=== PATIENT | male | born 1950 | race Caucasian/White ===

== ENCOUNTER → 2016-08-27 | Outpatient (CLI) | payer MEDICARE, OTHER ==
[~2016-08-27] MED LIST: AMLODIPINE BESY10 MG PO; AMLODIPINE BESYL5 MG PO; ASPIRIN; ASPIRIN81 MG PO; ATENOLOL; BYSTOLIC20 MG PO; CLOPIDOGREL75 MG PO; HYDRALAZINE HCL50 MG PO; HYZAAR 100-25 T1 TAB; LOPRESSOR PO; LORTAB 7.5-5001 TAB; LOSARTAN-HCTZ1 EAC1 PO; LOTREL 10/40 MG1 CAP PO; LOTREL 5/20 MG1 CAP; MINOXIDIL PO; MINOXIDIL10 MG PO; MINOXIDIL2.5 MG PO; NEXIUM; NITROGLYCERIN0.4 MG SL; PERCOCET5/325 PO; PHENERGAN; PLAVIX PO; PRILOSEC PO; PROSTATE MED; SIMVASTATIN20 MG PO; VIT C; VITAMIN C500 M1 PO; XALATAN OU
--- NOTE | ~2016-08-27 | US37 ---
[facility] A Service of [facility] RADIOLOGY TEXT RESULTS PATIENT: LOKI CASTAÑEDA LOCATION: CNIV : 50 UNIT #: [id number] AGE: [address]: Susan Barragan MD SEX: M ORDER DR: [id number] [facility] [address] [place], [place] [address] [id number] O MR#: [id number] Acc #: [id number] NAME: LOKI CASTAÑEDA : 1950 SEX: M STUDY DATE/TIME: 08/27/2016 15:32 UNIT: CNIV ROOM: STUDY DESCRIPTION: US Carotid W/Doppler Bilateral Attending Physician: Susan Barragan M.D. Referring Physician: Susan Barragan M.D. Ordering Physician: Susan Barragan M.D. Primary Care Physician: Dario Yoon M.D. MEDICAL IMAGING REPORT This report is preliminary unless electronic signature is present EXAM Bilateral carotid duplex HISTORY Carotid bruit. FINDINGS Duplex imaging of the carotid arteries was performed. The right common, internal, and external carotid arteries are patent with no significant plaque or stenosis. Velocity in the right common carotid is 75, internal is 63, and external 66 cm/sec. Right ICA/CCA ratio is 1.0. On the left side, the common, internal, and external carotid arteries are patent with no plaque. Velocity in the left common carotid is 72, internal is 59, and external is 75 cm/sec. Left ICA/CCA ratio is 0.9. Antegrade flow is seen in the right and left vertebral arteries. IMPRESSION 1. Normal carotid duplex exam with no plaque or stenosis on the right or left side. Antegrade flow is seen in the right and left vertebral arteries. Dictated by... Kade Null M.D. THIS IS AN ELECTRONICALLY VERIFIED REPORT Kade Null M.D. at 08/28/2016 5:12 PM /pk TD: 08/28/2016 08:25 [facility] A Service of [facility] RADIOLOGY TEXT RESULTS PATIENT: LOKI CASTAÑEDA LOCATION: CNIV : 50 UNIT #: [id number] AGE: [address]: Susan Barragan MD SEX: M ORDER DR: JOB #: [id number] MEDICAL IMAGING REPORT Page 1 of 1 COPY
== END | disposition home or self-care (01) ==
LOC: CNIV 14:53
DX: R09.89 Other specified symptoms and signs involving the circulatory and respiratory systems (principal)
CPT/HCPCS: 93880

== ENCOUNTER → 2016-11-12 | Day surgery (SDC) | payer MEDICARE, OTHER ==
--- NOTE | ~2016-11-12 | OR ---
Unit #: [id number] #: [id number] Patient: LOKI CASTAÑEDA [id number] [address] [place], [place] [address] [id number] O MR#: [id number] NAME: LOKI CASTAÑEDA ROOM: Date of Procedure: 11/12/2016 Admission Date: 11/12/2016 Surgeon: Jin Negrete M.D. : 1950 Attending Physician: Jin Negrete M.D. Primary Care Physician: Dario Yoon M.D. OPERATIVE REPORT PRIMARY CARE PHYSICIAN Dario Yoon M.D. PREOPERATIVE DIAGNOSIS Colorectal cancer screening in an average-risk patient. PROCEDURE PERFORMED Colonoscopy up to cecum with fair prep and visualization. POSTOPERATIVE DIAGNOSES Mild sigmoid and descending colon diverticulosis. Otherwise, normal examination up to cecum. No polyps were seen. Due to the fair quality of the prep, the patient was advised to have repeat examination in 5 years instead of 10 years. SEDATION USED MAC. DESCRIPTION OF PROCEDURE Following detailed explanations of potential risks and complications of a colonoscopy, namely perforation, bleeding, and complications related to sedation, the patient was brought to GI lab and laid in the left lateral decubitus position. A digital rectal examination was performed, which was normal. Lubricated tip of the Olympus video colonoscope was inserted through the anus and advanced under direct vision. The scope was advanced and passed up to sigmoid into descending colon. Scant small diverticula were noted in this area. The scope tip was then navigated all the way up to cecum with visualization of ileocecal valve and the appendiceal orifice. Preparation was fair with good visualization and photodocumentation was obtained. Successive segments of the colonic mucosa were examined upon withdrawal and appeared unremarkable. There being no polyps, mass lesions, or AVMs. Other than the scant diverticula seen in the left side, no other abnormalities noted. The patient did not have any hemorrhoids at anal verge. The scope was then withdrawn. The patient returned to the recovery area. He tolerated the procedure without any postprocedure complications. Dictated by... Jin Negrete M.D. Unit #: [id number] #: [id number] Patient: LOKI CASTAÑEDA LUISA/jani TD: 11/13/2016 01:34 JOB #: [id number] OPERATIVE REPORT Page 1 of 1 X Jin Negrete MD PROCEDURE OPERATIVE NOTE
== END | disposition home or self-care (01) ==
LOC: COPS 10:08
DX: Z12.11 Encounter for screening for malignant neoplasm of colon (principal); K57.30 Diverticulosis of large intestine without perforation or abscess without bleeding; I25.2 Old myocardial infarction; E11.9 Type 2 diabetes mellitus without complications; I10 Essential (primary) hypertension; M19.90 Unspecified osteoarthritis, unspecified site; K21.9 Gastro-esophageal reflux disease without esophagitis; Z86.73 Personal history of transient ischemic attack (TIA), and cerebral infarction without residual deficits; N40.1 Benign prostatic hyperplasia with lower urinary tract symptoms; Z86.69 Personal history of other diseases of the nervous system and sense organs; Z87.09 Personal history of other diseases of the respiratory system; Z87.891 Personal history of nicotine dependence; Z79.82 Long term (current) use of aspirin; Z79.02 Long term (current) use of antithrombotics/antiplatelets; Z79.899 Other long term (current) drug therapy; Z90.49 Acquired absence of other specified parts of digestive tract; Z95.1 Presence of aortocoronary bypass graft; Z98.1 Arthrodesis status; Z98.890 Other specified postprocedural states
CPT/HCPCS: 82947